=== PATIENT | male | born 1970 | race Caucasian/White ===

== ENCOUNTER 2021-11-13 10:37 | Emergency (ER) | payer SELFPAY ==
--- NOTE | 2021-11-13 11:12 | EDM.PDOC ---
ED HPI GENERAL MEDICAL PROBLEM - General Chief Complaint: Skin Complaint Stated Complaint: SORE LEFT LEG Time Seen by Provider: 11/13/21 10:50 Source of Information: Reports: Patient History Limitations: Reports: No Limitations - History of Present Illness INITIAL COMMENTS - FREE TEXT/NARRATIVE: Patient presents the emergency room today with sharp burning pain to the lower left ankle area from where he had a ankle bracelet placed by the local [employer] Department over the last couple of days. Patient states that her rashes started that is turned red and now burning with the stinging pain and he started to have redness, the side of his legs. He had the ankle bracelet switched to the right leg yesterday and now has a rash at the ankle on the right leg as well. He also states that he feels like his lymph nodes in his groin is swollen for the last day or 2. He noticed this when he was at a pool tournament up in [place] but decided to come to the ER today. He denies any fevers or chills nausea or vomiting states he has been doing fine other than the rash and the redness at his ankles. He has no other complaints at this time He does have a history of drug abuse but has been clean now for the last 8 months. Duration: Day(s): Location: Reports: Lower Extremity, Left, Lower Extremity, Right Quality: Reports: Burning Severity: Mild Improves with: Reports: None Worsens with: Reports: None Associated Symptoms: Reports: No Other Symptoms - Related Data Allergies Allergy/AdvReac Type Severity Reaction Status Date / Time salicylic acid Allergy Other Verified 11/13/21 11:14 [From Compound W] Home Meds: Home Meds . [No Known Home Meds] 11/13/21 [History] ED ROS GENERAL - Review of Systems Review Of Systems: See Below Constitutional: Reports: No Symptoms HEENT: Reports: No Symptoms Respiratory: Reports: No Symptoms Cardiovascular: Reports: No Symptoms Endocrine: Reports: No Symptoms GI/Abdominal: Reports: No Symptoms : Reports: No Symptoms Musculoskeletal: Reports: No Symptoms Skin: Reports: Rash, Erythema. Denies: No Symptoms Neurological: Reports: No Symptoms Psychiatric: Reports: No Symptoms Hematologic/Lymphatic: Reports: No Symptoms Immunologic: Reports: No Symptoms ED EXAM, SKIN/RASH Exam: See Below Exam Limited By: No Limitations General Appearance: Alert, WD/WN, No Apparent Distress Throat/Mouth: Normal Inspection, Normal Lips, Normal Teeth, Normal Gums, Normal Oropharynx, Normal Voice, No Airway Compromise Neck: Normal Inspection, Supple, Non-Tender, Full Range of Motion. No: Lymphadenopathy (L), Lymphadenopathy (R) Respiratory/Chest: No Respiratory Distress, Lungs Clear, Normal Breath Sounds, No Accessory Muscle Use Cardiovascular: Normal Peripheral Pulses, Regular Rate, Rhythm, No Edema, No Gallop, No JVD, No Murmur, No Rub GI/Abdominal: Normal Bowel Sounds, Soft, Non-Tender, No Distention. No: Guarding, Rigid, Rebound, Tender (Male) Exam: Other (Patient has some mild bilateral inguinal adenopathy) Back Exam: Full Range of Motion Extremities: Normal Inspection, Normal Range of Motion, No Pedal Edema, Normal Capillary Refill, Other (Exam to the left ankle there is a noted approximately 4 cm x 1 cm abrasion with some superficial erythema with calor and streaking noted approximately 2 inches from the abrasion just above the ankle on the right there is approximately a 2 cm superficial abrasion that has some superficial erythema ). No: Non-Tender Neurological: Alert, Oriented, CN II-XII Intact, Normal Cognition, Normal Gait, No Motor/Sensory Deficits, Other (Continuation of the right ankle exam there is no signs or symptoms of any secondary cellulitis positive dorsalis pedis posterior tibialis bilateral with good cap refill there is no tenderness palpation over the calfs no edema no erythema) Psychiatric: Normal Affect, Normal Mood Skin: Warm, Dry, Intact, Other (See extremities for description). No: Normal Color, No Rash Course - Vital Signs Text/Narrative:: Patient will be given Keflex 500 mg 1 p.o. every 6 hours x12 days he will also be given Medihoney directions applied to area 3-4 times a day he was also given wound care instructions and gave verbal understanding I spoke with Pat at the local [employer] he states he could either loosen the bracelet Removed it to another location if need be have the patient come after he is discharged Last Recorded V/S: Last Vital Signs Temp 37.7 C 11/13/21 10:45 Pulse 74 11/13/21 10:45 Resp 18 11/13/21 10:45 BP 139/86 11/13/21 10:45 Pulse Ox 97 11/13/21 10:45 Patient will be given Invanz 1 g IM started on Keflex 500 mg every 6 hours x12 days Patient is instructed to follow-up with his primary care provider in the next 24 to 48 hours for wound recheck - Orders/Labs/Meds Meds: Medications Discontinued Medications Generic Name Dose Route Start Last Admin Trade Name Wale PRN Reason Stop Dose Admin Ertapenem 1 gm/ Lidocaine HCl 0 gm 11/13/21 11:15 11/13/21 11:26 3.2 ml IM 11/13/21 11:16 1 inj ONETIME ONE Administration Ertapenem 1 gm 11/13/21 11:01 11/13/21 11:26 Ertapenem 1 Gm Vial IM 11/13/21 11:02 Not Given ONETIME ONE Miscellaneous Medication 44 ml 11/13/21 11:46 Honey 44 Ml Gel TP 11/13/21 11:47 ONETIME ONE Departure - Departure Time of Disposition: 11:45 Disposition: Home, Self-Care 01 Condition: Good Clinical Impression: Cellulitis of left lower extremity - Discharge Information *PRESCRIPTION DRUG MONITORING PROGRAM REVIEWED*: No *COPY OF PRESCRIPTION DRUG MONITORING REPORT IN PATIENT JAMES: No Instructions: Cellulitis, Adult, [id number] Referrals: PCP,Not In Area [Primary Care Provider] - Forms: ED Department Discharge Additional Instructions: Make sure you follow-up with your primary care provider in the next 24 hours for wound recheck Keflex 500 mg 1 tablet every 6 hours for 12 days make sure you finish all of the antibiotics I recommend taking a probiotic daily the full course of the antibiotics Keep the area clean with warm soapy water at least 2 or 3 times a day apply the Medihoney to the area at least every 6 hours Return to emergency room if anything changes or gets worse Sepsis Event Note (ED) - Focused Exam Vital Signs: Vital Signs Temp Pulse Resp BP Pulse Ox 11/13/21 10:45 37.7 C 74 18 139/86 97 - Problem List & Annotations (1) Cellulitis of left lower extremity SNOMED Code(s): 502695269 Code(s): L03.116 - CELLULITIS OF LEFT LOWER LIMB Status: Acute Current Visit: Yes
[2021-11-13] MEDS: Ertapenem 1 GM, Lidocaine 1% 3.2 ML IM ONE ×2 (11:26)
[2021-11-13] MEDS: Ertapenem 1 GM Vial IM ONE (11:26)
[2021-11-13] MEDS: Honey 44 ML Gel TP ONE (12:10)
== END 2021-11-13 12:15 | disposition home or self-care (01) ==
LOC: VM.ED 10:37
DX: L03.116 Cellulitis of left lower limb (principal); Z88.8 Allergy status to other drugs, medicaments and biological substances
CPT/HCPCS: 96372; 99283; 99284; A9270-GY; J1335

== ENCOUNTER 2021-12-04 12:44 | Emergency (ER) | payer SELFPAY ==
[2021-12-04] MEDS ORDERED: cefTRIAXone 1 GM Vial IM ONE (12:55)
--- NOTE | 2021-12-04 13:02 | EDM.PDOC ---
ED HPI GENERAL MEDICAL PROBLEM - General Chief Complaint: Lower Extremity Injury/Pain Stated Complaint: SORE RIGHT LEG Time Seen by Provider: 12/04/21 12:45 Source of Information: Reports: Patient History Limitations: Reports: No Limitations - History of Present Illness INITIAL COMMENTS - FREE TEXT/NARRATIVE: Emergency department with complaints of a right lower leg cellulitis. Patient was seen a few weeks ago and was started on Keflex. He states that he has an ankle bracelet on it for court purposes and states that it has been irritating. It was removed approximately 2 days ago. He states that he is out of the antibiotics now however he still continues to have the ongoing cellulitis and skin breakdown. Patient would like reevaluation and further treatment recommend ations for this. He states that he has noticed improvement since the ankle bracelet has been removed from that ankle. He denies any systemic responses no fever, nausea, vomiting, diarrhea, range of motion has been intact and has no CMS concerns. Onset: Gradual Duration: Constant Location: Reports: Lower Extremity, Right Quality: Reports: Ache, Throbbing Severity: Moderate Improves with: Reports: Rest Worsens with: Reports: Movement Context: Reports: Other Associated Symptoms: Reports: No Other Symptoms - Related Data Allergies Allergy/AdvReac Type Severity Reaction Status Date / Time salicylic acid Allergy Other Verified 11/13/21 11:14 [From Compound W] Home Meds: Home Meds cephALEXin [Keflex] 500 mg PO Q8H 7 Days #21 cap 12/04/21 [Rx] Past Medical History - Past Health History Medical/Surgical History: Denies Medical/Surgical History ED ROS GENERAL - Review of Systems Review Of Systems: Comprehensive ROS is negative, except as noted in HPI. Constitutional: Reports: No Symptoms HEENT: Reports: No Symptoms Respiratory: Reports: No Symptoms Cardiovascular: Reports: No Symptoms Endocrine: Reports: No Symptoms GI/Abdominal: Reports: No Symptoms : Reports: No Symptoms Musculoskeletal: Reports: No Symptoms Neurological: Reports: No Symptoms Psychiatric: Reports: No Symptoms Hematologic/Lymphatic: Reports: No Symptoms Immunologic: Reports: No Symptoms ED EXAM, GENERAL - Physical Exam Exam: See Below Exam Limited By: No Limitations General Appearance: Alert, WD/WN, No Apparent Distress Head: Atraumatic, Normocephalic Neck: Normal Inspection, Supple, Non-Tender Respiratory/Chest: No Respiratory Distress, Lungs Clear, No Accessory Muscle Use Cardiovascular: Normal Peripheral Pulses, Regular Rate, Rhythm, No Edema Peripheral Pulses: 4+: Posterior Tibial (L), Posterior Tibial (R), Dorsalis Ped is (L), Dorsalis Pedis (R) Extremities: Normal Range of Motion, No Pedal Edema, Normal Capillary Refill. No: Non-Tender (right lower extremity where skin breakdown is noted) Neurological: Alert, Oriented, CN II-XII Intact, Normal Gait Psychiatric: Normal Affect, Normal Mood Skin Exam: Warm, Dry, Normal Color, No Rash, Wound/Incision (right lower extremity- posterior ankle. skin breakdown noted with clear drainage. no bleeding or bruising. redness around entire ankle and length 2 inch. ) Course - Orders/Labs/Meds Orders: Active Orders 24 hr Category Date Time Status cefTRIAXone [Rocephin] Med 12/04/21 12:55 Once 1 gm IM ONETIME ONE Departure - Departure Time of Disposition: 13:00 Disposition: Home, Self-Care 01 Condition: Good Clinical Impression: Cellulitis Qualifiers: Site of cellulitis: extremity Site of cellulitis of extremity: lower extremity Laterality: right Qualified Code(s): L03.115 - Cellulitis of right lower limb - Discharge Information *PRESCRIPTION DRUG MONITORING PROGRAM REVIEWED*: Not Applicable *COPY OF PRESCRIPTION DRUG MONITORING REPORT IN PATIENT JAMES: Not Applicable Instructions: Cellulitis, Adult Forms: ED Department Discharge Additional Instructions: 1. rest 2. increase your water intake 3. Take all antibiotics as prescribed even if feeling better 4. Take a probiotic while on antibiotics to help promote healthy GI motility 5. Activity and diet as tolerated 6. Can use Ibuprofen and tylenol for any fever or discomfort 7. Follow up with your PCP or return if symptoms progress or worsen 8. Education provided to you regarding your illness, probiotics, antibiotic prescribed 9. Call with any questions or concerns - My Orders Last 24 Hours: My Active Orders 12/04/21 12:55 cefTRIAXone [Rocephin] 1 gm IM ONETIME ONE - Assessment/Plan Last 24 Hours: My Active Orders 12/04/21 12:55 cefTRIAXone [Rocephin] 1 gm IM ONETIME ONE Assessment:: 1. right lower leg cellulitis with non healing wound Plan: 1. Rocephin IM given in ER 2. Wound cleansed and dressing applied 3. Scripts sent to the pharmacy 4. Patient and nursing staff was updated regarding the plan of care 5. Education provided the patient regarding activity, diet, rest, [id number] medication modalities, and follow-up care was provided 6. Patient and family are agreeable to the above plan of care 7. All questions and concerns were addressed with the patient and family prior to discharge
== END 2021-12-04 13:29 | disposition home or self-care (01) ==
LOC: VM.ED 12:44
DX: L03.115 Cellulitis of right lower limb (principal); Z91.048 Other nonmedicinal substance allergy status
CPT/HCPCS: 96372; 99283; J0696